=== PATIENT | female | born 1975 | race Caucasian/White ===

== ENCOUNTER → 2020-10-10 12:52 | Outpatient (BNVA) | payer MEDICAID, SELFPAY | PROVIDERS: Visit Provider Nurse Practitioner Family | DX: Z20.822 Contact with and (suspected) exposure to COVID-19 (principal) | CPT/HCPCS: 87635 ==

== ENCOUNTER 2020-10-13 19:42 | Emergency (ER) | payer MEDICAID, SELFPAY ==
[2020-10-13 20:04] VITALS: BP 129/89; PULSE 116; RESP 18; TEMP 37.2; O2SAT 93; BMI 41.1
[2020-10-13 20:09] VITALS: O2SAT 93
[2020-10-13] MEDS: ondansetron 2 mg/ML SDV 2 mL 4 MG IM (20:48)
--- NOTE | 2020-10-13 20:51 | W.ED.COVID ---
HPI - COVID General: Chief Complaint: COVID symptoms Stated Complaint: COVID+/SOB Time Seen by Provider: 10/13/20 20:16 Triage information: Has fever, cough or shortness of breath. Exposure to COVID + person last 14 days History of Present Illness: HPI Narrative: Patient complains being Covid positive, with symptoms since . Test was done on the shows positive for Covid. Patient said she is able to keep some fluids down but she has vomiting some now. Does complain about shortness of breath muscle aches. Patient did not have the vaccine. complaint: known COVID positive Prior covid testing: yes, results known Prior testing date: 10/10/20 COVID 19 common symptoms: positive fever(s), cough, non-productive cough, body aches, nausea, vomiting and diarrhea; negative headache(s), throat pain or nasal congestion COVID 19 other sytmptoms: negative chest pain Onset (ago): day(s) Severity: moderate Pertinent comorbid conditions: hypertension Treatment prior to arrival: acetaminophen COVID Results: SARS-CoV-2 RNA (RT-PCR) Detected (NOT DETECTED) A 10/10/20 12:52 10/10/20 Review of Systems Const: Reports: fever(s) and body aches Eyes: Denies: change in vision or blurry vision ENMT: Denies: throat pain or nasal congestion Card: Denies: chest pain or dyspnea on exertion Resp: Reports: non-productive cough GI: Reports: nausea, vomiting and diarrhea Musc: Denies: extremity pain Skin/Breast: Denies: rash Neuro: Denies: headache(s) Psych: Denies: anxiety or depression Riaz/Lymph: Denies: easy bruising PFSH ED PFSH: Medical History (Updated 10/13/20 @ 20:31 by DEV Jesus) Anxiety Chronic back pain GERD (gastroesophageal reflux disease) Hypertension Obesity Restless leg syndrome Tachyarrhythmia Surgical History (Updated 06/07/19 @ 07:29 by Juan Slade MD) History of dilation and curettage History of tubal ligation Family History (Updated 06/06/19 @ 13:30 by MAGALIS Smallwood) Denies family history of Anesthesia complication Bleeding disorder Social History Smoking and tobacco status: former smoker History of recent travel: No Physical Exam Const: COMMON NORMALS: no acute distress GENERAL APPEARANCE: cooperative Resp: COMMON NORMALS: normal respiratory effort and No retractions Psych: COMMON NORMALS: mental status grossly normal Course Vital Signs: Vital signs: Vital Signs Temperature 99.0 F 10/13/20 20:04 Pulse Rate 116 H 10/13/20 20:04 Respiratory Rate 18 10/13/20 20:04 Blood Pressure 129/89 10/13/20 20:04 Pulse Oximetry 93 10/13/20 20:09 MDM - COVID COVID Results: SARS-CoV-2 RNA (RT-PCR) Detected (NOT DETECTED) A 10/10/20 12:52 10/10/20 Monoclonal Antibody - ED Inclusion/Exclusion Criteria age >/= 12 years, weight >/= 40kg /88lbs, symptom onset less than 10 days ago and + direct Sars-Cov-2 test less than 7-10 days ago obesity (BMI >25 or 85%til for age) and cardiovascular disease or htn not requiring hospitalization, not requiring oxygen (if not chronically on oxygen) and no increase oxygen requirement (if chronically on oxygen) Patient education patient/family/caregiver received/reviewed fact sheet, Emergency Use Authorization/unapproved drug status discussed with patient/family/caregiver, alternatives to this treatment discussed with patient/family/caregiver, risks and benefits of medication reviewed with patient/family/caregiver, patient/family/caregiver given opportunity for questions, which were answered and patient consents to receiving Monoclonal Antibody Treatment Plan for treatment Meets criteria for Monoclonal Antibody infusion Date of symptom(s) onset: 10/05/20 Where are the positive COVID test results, if positive?: Resulted in [facility] Monoclonal antibody information given and Ordering Monoclonal Antibody infusion for another day Discharge Plan Discharge Patient Disposition: Home Clinical Impression: COVID-19 Condition: Stable Prescriptions: New Zofran 4 mg tablet 4 mg PO Q8H 3 Days Qty: 9 RF: 0 No Action metoprolol tartrate 50 mg tablet 50 mg PO DAILY RF: 0 cetirizine 10 mg capsule 10 mg PO DAILY RF: 0 montelukast 10 mg tablet 10 mg PO DAILY RF: 0 loratadine 10 mg capsule 10 mg PO DAILY PRNRF: 0 lisinopril 5 mg tablet 5 mg PO DAILY RF: 0 amitriptyline 25 mg tablet 25 mg PO DAILY RF: 0 paroxetine HCl 20 mg tablet 20 mg PO DAILY RF: 0 meloxicam 15 mg tablet 15 mg PO DAILY RF: 0 levothyroxine 25 mcg capsule 25 mcg PO DAILY RF: 0 Discharge Orders: Discharge ED (Routine); Ordered 10/13/20 Ordered By: Jalil Gan Other Ambulatory Orders: Request for MCA (Routine) Timeframe: 1 Day Facility: [facility] - Location: Outpatient [facility] Ordered By: Jalil Gan Referrals: Haydee Salas FNP [Primary Care Provider] - Discharge Diet: Usual diet Discharge Activity: Increase activity as tolerated Activity Restrictions/Additional Instructions: Take medication as directed on label. Follow-up tomorrow morning here at [facility] at the ER for antibody infusion as directed. Can take Tylenol and/or ibuprofen for discomfort. Coding Level of Care Code ED Assembler Cards [employer] Announcements for Slivio Morocho
[2020-10-13 21:45] VITALS: BP 143/89; PULSE 125; RESP 24; TEMP 38.3; O2SAT 95
[2020-10-13 22:44] VITALS: BP 128/89; PULSE 122; RESP 22; TEMP 39; O2SAT 93
[2020-10-13] MEDS: acetaminophen 500 mg Tablet 1000 MG PO (22:50)
[2020-10-13 23:27] VITALS: BP 158/86; PULSE 114; RESP 20; TEMP 37.5; O2SAT 92
[2020-10-13 23:53] VITALS: BP 148/85; PULSE 112; RESP 22; TEMP 37.6; O2SAT 92
== END 2020-10-13 23:54 | disposition home or self-care (01) ==
PROVIDERS: Emergency Provider Nurse Practitioner Family; PCP Nurse Practitioner Family
DX: U07.1 COVID-19 (principal); I10 Essential (primary) hypertension; Z87.891 Personal history of nicotine dependence
CPT/HCPCS: 96365; 96372; 99284; J2405

== ENCOUNTER 2020-10-19 11:35 | Outpatient (CLI) | payer MEDICAID, SELFPAY ==
--- NOTE | 2020-10-19 11:47 | CT_ITS ---
WS: [id number] CT CHEST ANGIOGRAPHY WITH REFORMATS HISTORY: ELEVATED D DIMER TECHNIQUE: Contiguous axial images are obtained through the chest during arterial injection of intrav enous contrast. Images are reconstructed to evaluate the pulmonary arteries. MIP imaging also reviewe d. All CT scans at [facility] use at least one of these dose optimization techniques: aut omated exposure control; mA and/or kV adjustment per patient size (includes targeted exams where dose is matched to clinical indication); or iterative reconstruction. CONTRAST: Omnipaque 350; 95 mL IV. DLP: 527.38 mGy.cm COMPARISON: None available. Adequate opacification of the pulmonary arteries centrally. No filling defects are identified. Normal size pulmonary artery. Normal thoracic aorta. Heart size is normal with no RIGHT heart strain. No pe ricardial or pleural effusions. Multi lobar consolidations and groundglass opacifications involving all lobes. Most typical for Covid 19. No pneumothorax. Mildly prominent perihilar lymph nodes measuring up to 1.2 cm diameter are prob ably reactive. No hiatal hernia. Mild hepatic steatosis. Visualized gallbladder is normal. No adrenal mass. Thoracic spondylitic change. CT/CT angio chest PE protcl [id number] IMPRESSION: 1. No pulmonary embolism. 2. Multi lobar pulmonary consolidations and groundglass opacifications. Consid er Covid 19 pneumonia. 3. Reactive lymphadenopathy.
[2020-10-19] MEDS: iohexol 350 mg/mL 100 mL Btl IV (12:34)
== END 2020-10-19 11:36 | disposition home or self-care (01) ==
PROVIDERS: PCP Nurse Practitioner Family; Visit Provider Nurse Practitioner Family
DX: R79.89 Other specified abnormal findings of blood chemistry (principal)
CPT/HCPCS: 71275

== ENCOUNTER → 2020-10-25 14:16 | Outpatient (BNVA) | payer MEDICAID, SELFPAY | PROVIDERS: PCP Nurse Practitioner Family; Referring Provider Nurse Practitioner Family; Visit Provider Podiatrist Foot & Ankle Surgery | DX: M79.672 Pain in left foot (principal) | CPT/HCPCS: 73630 ==

== ENCOUNTER 2020-10-25 16:33 | Outpatient (CLI) | payer MEDICAID, SELFPAY | END 2020-10-25 16:34 | disposition home or self-care (01) | LOC: SPT 16:33 | PROVIDERS: PCP Nurse Practitioner Family; Visit Provider Podiatrist Foot & Ankle Surgery | DX: Z46.89 Encounter for fitting and adjustment of other specified devices (principal); M72.2 Plantar fascial fibromatosis | CPT/HCPCS: 97760; L4397 ==

== ENCOUNTER → 2021-07-16 09:56 | Outpatient (BNVA) | payer MEDICAID, SELFPAY | PROVIDERS: PCP Nurse Practitioner Family; Visit Provider Podiatrist Foot & Ankle Surgery | DX: M19.071 Primary osteoarthritis, right ankle and foot (principal); M79.671 Pain in right foot | CPT/HCPCS: 73630; 99214 ==

== ENCOUNTER → 2021-08-29 13:54 | Outpatient (BNVA) | payer MEDICAID, SELFPAY | PROVIDERS: PCP Nurse Practitioner Family; Visit Provider Podiatrist Foot & Ankle Surgery | DX: M79.674 Pain in right toe(s) (principal); M19.071 Primary osteoarthritis, right ankle and foot | CPT/HCPCS: 99214 ==

== ENCOUNTER → 2021-11-19 14:21 | Outpatient (BNVA) | payer MEDICAID, SELFPAY | PROVIDERS: PCP Nurse Practitioner Family; Visit Provider Internal Medicine Pulmonary Disease | DX: R05.8 Other specified cough (principal); Z12.11 Encounter for screening for malignant neoplasm of colon; R06.02 Shortness of breath; R05.3 Chronic cough; U09.9 Post COVID-19 condition, unspecified; R09.82 Postnasal drip; Z87.891 Personal history of nicotine dependence | CPT/HCPCS: 36415; 71046; 82785; 85025; 99204 ==

== ENCOUNTER → 2023-02-10 14:38 | Outpatient (BNVA) | payer MEDICAID, SELFPAY | PROVIDERS: PCP Nurse Practitioner Family; Visit Provider Podiatrist Foot & Ankle Surgery | DX: G57.81 Other specified mononeuropathies of right lower limb | CPT/HCPCS: 99213 ==

== ENCOUNTER → 2023-11-10 08:00 | Outpatient (BNVA) | payer MEDICAID, SELFPAY | PROVIDERS: PCP Nurse Practitioner Family; Referring Provider Nurse Practitioner Family; Visit Provider Psychiatry & Neurology Neurology | DX: M51.36 Other intervertebral disc degeneration, lumbar region; M51.37 Other intervertebral disc degeneration, lumbosacral region; S16.1XXA Strain of muscle, fascia and tendon at neck level, initial encounter; S29.019A Strain of muscle and tendon of unspecified wall of thorax, initial encounter; M79.18 Myalgia, other site; X58.XXXA Exposure to other specified factors, initial encounter | CPT/HCPCS: 99203 ==

== ENCOUNTER → 2023-11-17 13:22 | Outpatient (BNVA) | payer MEDICAID, SELFPAY | PROVIDERS: PCP Nurse Practitioner Family; Visit Provider Orthopaedic Surgery | DX: M79.18 Myalgia, other site (principal); M48.062 Spinal stenosis, lumbar region with neurogenic claudication; M51.36 Other intervertebral disc degeneration, lumbar region; M51.37 Other intervertebral disc degeneration, lumbosacral region | CPT/HCPCS: 72110; 99204 ==

== ENCOUNTER 2024-04-30 18:52 | Emergency (ER) | payer MEDICAID, SELFPAY ==
[2024-04-30 19:03] VITALS: BP 156/87; PULSE 50; RESP 16; TEMP 36.8; O2SAT 97; BMI 34.3
--- NOTE | 2024-04-30 20:07 | W.ED.BACK ---
HPI - Back Pain/Injury General: Chief Complaint: Back Pain/Injury Stated Complaint: Lower back Disc Pain down into legs Time Seen by Provider: 04/30/24 19:19 History of Present Illness: This patient is a 49-year-old white female who presents to the emergency department with low back pain that radiates to the right buttock. Patient states she has had the pain for the past 2 days. She does have known degenerative disc disease and has seen Dr. Winter. Patient has been taking Tylenol and muscle relaxers without much relief. No prior surgery on her lumbar spine. She has not had any incontinence of urine or stool. Related Data Home Medications ?Medication ?Instructions ?Recorded ?Confirmed cetirizine 10 mg capsule 10 mg PO DAILY 06/06/19 11/17/23 montelukast 10 mg tablet 10 mg PO DAILY 06/06/19 11/17/23 levothyroxine 25 mcg capsule 25 mcg PO DAILY 10/10/20 11/17/23 hydrochlorothiazide 25 mg tablet 25 mg PO DAILY 08/29/21 11/17/23 losartan 50 mg tablet 50 mg PO DAILY 08/29/21 11/17/23 cholecalciferol (vitamin D3) 125 125 mcg PO DAILY 10/08/21 11/17/23 mcg (5,000 unit) capsule magnesium 30 mg tablet 30 mg PO DAILY 10/08/21 11/17/23 dulaglutide 1.5 mg/0.5 mL 1.5 mg SUBCUT 11/10/23 11/17/23 subcutaneous pen injector (Trulicity) lancets 33 gauge ([facility] #100 ea 11/10/23 11/17/23 Plus Lancet) Previous Rx's ?Medication ?Instructions ?Recorded Night splint #1 ea 10/25/20 metaxalone 800 mg tablet 800 mg PO TID #90 tabs 11/10/23 cyclobenzaprine 5 mg tablet 5 mg PO TID PRN muscle spasm 14 01/04/24 days #42 tabs hydrocodone 5 mg-acetaminophen 325 1 tab PO Q6H PRN pain #30 tabs 04/30/24 mg tablet methylprednisolone 4 mg tablets in See Rx Instructions PO .COMPLEX 04/30/24 a dose pack (Medrol (Luis Eduardo)) #21 ea Allergies Allergy/AdvReac Type Severity Reaction Status Date / Time Penicillins Allergy Intermediate ALGY-Rash Verified 11/17/23 13:29 Review of Systems General: Reports: 10 or more systems reviewed and unremarkable except in HPI and below Musc: Reports: back pain PFSH ED PFSH: Medical History Type 2 diabetes mellitus, without long-term current use of insulin Vitamin D deficiency, unspecified Hypothyroidism, unspecified DDD (degenerative disc disease), lumbosacral Supraventricular tachycardia Encounter to establish care Tachyarrhythmia Anxiety Hypertension Obesity GERD (gastroesophageal reflux disease) Surgical History History of endometrial ablation History of tonsillectomy History of dilation and curettage History of tubal ligation Family History Denies family history of Anesthesia complication Bleeding disorder Social History Smoking and tobacco/nicotine status: never used tobacco/nicotine Quit status (tobacco/nicotine): has quit using Year quit tobacco: 2001 Former quit date comment: 1ppd x 10 years Physical Exam Const: COMMON NORMALS: no acute distress, patient oriented x3 and no limitations GENERAL APPEARANCE: cooperative and comfortable HENMT: COMMON NORMALS: normocephalic, atraumatic, Normal nasal mucous membranes and turbinates present, moist oral mucous membranes and oropharynx normal HEAD & SCALP: normal to inspection, normocephalic and atraumatic FACE & SINUS: normal facial exam NOSE: Normal nasal mucous membranes and turbinates present Eye: COMMON NORMALS: Equal, round and reactive pupils present, EOMs intact bilaterally and conjunctivae normal GENERAL EYE: appearance normal, both eyes and all related structures CONJUNCTIVA: Yes conjunctivae normal PUPIL: Yes Equal, round and reactive pupils present Neck/C-Spine: COMMON NORMALS: supple and no JVD Chest: COMMONS NORMALS: normal inspection of the chest Resp: COMMON NORMALS: normal respiratory effort and clear to auscultation bilaterally AUSCULTATION: clear to auscultation bilaterally Cardio: COMMON NORMALS: no JVD, regular rate, regular rhythm, No gallops present (Cardio), No murmurs present (Cardio) and No rub (Cardio) RATE: regular rate RHYTHM: regular rhythm GI: COMMON NORMALS: Normal to inspection, nondistended, normoactive bowel sounds present, Soft to palpation and non-tender AUSCULTATION: Yes normoactive bowel sounds PALPATION: Yes Soft to palpation : COMMON NORMALS: Yes no CVA tenderness BLADDER/KIDNEY EXAM: Yes no CVA tenderness Back/Pelvis: COMMON NORMALS: no CVA tenderness LUMBAR SPINE/LOWER BACK: Yes pain with ROM and Yes lumbar spinal tenderness Extremity: COMMON NORMALS: normal to inspection Neuro: COMMON NORMALS: patient oriented x3 and CN's II-XII intact bilaterally Psych: COMMON NORMALS: mental status grossly normal, Normal thought process present and cooperative THOUGHT PROCESS: Normal thought process present Skin: COMMON NORMALS: no rashes or lesions noted, turgor normal and no jaundice GENERAL SKIN EXAM: no rashes or lesions noted and turgor normal Course Vital Signs: Vital signs: Vital Signs Temperature 98.2 F 04/30/24 19:03 Pulse Rate 50 L 04/30/24 19:03 Respiratory Rate 16 04/30/24 19:03 Blood Pressure 156/87 04/30/24 19:03 Pulse Oximetry 97 04/30/24 19:03 Oxygen Delivery Me thod Room Air 04/30/24 19:03 MDM - Back Pain/Injury Medical Decision Making Patient was given injection of morphine for pain in the emergency department. She was discharged in stable condition with prescriptions for hydrocodone and a Medrol Dosepak. Recommended she follow-up with her primary care provider and/or spine surgeon for ongoing management. No radiology studies performed this visit Discharge Plan Discharge Patient Disposition: Home Clinical Impression: Sciatica Qualifiers: Laterality: right Qualified Code(s): M54.31 - Sciatica, right side Condition: Stable Prescriptions: New hydrocodone-acetaminophen 5-325 mg tablet 1 tab PO Q6H PRN (Reason: pain) Qty: 30 0RF methylprednisolone [Medrol (Luis Eduardo)] 4 mg tablets,dose pack See Rx Instructions .ROUTE .COMPLEX Qty: 21 0RF Rx Instructions: orally per package directions No Action cetirizine 10 mg capsule 10 mg PO DAILY montelukast 10 mg tablet 10 mg PO DAILY levothyroxine 25 mcg capsule 25 mcg PO DAILY (DME) Night splint See Rx Instructions .ROUTE .MEDSUPPLY Qty: 1 0RF Rx Instructions: As directed losartan 50 mg tablet 50 mg PO DAILY hydrochlorothiazide 25 mg tablet 25 mg PO DAILY cholecalciferol (vitamin D3) 125 mcg (5,000 unit) capsule 125 mcg PO DAILY magnesium 30 mg tablet 30 mg PO DAILY (DME) lancets [OneTouch Delica Plus Lancet] 33 gauge misc See Rx Instructions .ROUTE .MEDSUPPLY Qty: 100 Rx Instructions: As directed Trulicity 1.5 mg/0.5 mL pen injector 1.5 mg SUBCUT metaxalone 800 mg tablet 800 mg PO TID Qty: 90 3RF cyclobenzaprine 5 mg tablet 5 mg PO TID PRN (Reason: muscle spasm) 14 Days Qty: 42 0RF Discharge Orders: Discharge ED (Routine); Ordered 04/30/24 Ordered By: Buddy Santos Referrals: Haydee Salas FNP [Primary Care Provider] - Patient Instructions: Opioid Safety, Pain Management, Sciatica Activity Restrictions/Additional Instructions: Follow-up with your primary care provider and/or back specialist for ongoing management. Print Language: Namibian Coding Level of Care Code ED Battery Repairer for Silvio Morocho
[2024-04-30] MEDS: ondansetron hcl ODT 4 mg Tab PO (20:27)
[2024-04-30] MEDS: morphine 4 mg/mL SDV 1 mL 8 MG IM (20:27)
[2024-04-30 20:43] VITALS: BP 152/82; PULSE 71; RESP 16; O2SAT 98
== END 2024-04-30 20:42 | disposition home or self-care (01) ==
PROVIDERS: Emergency Provider Emergency Medicine; PCP Nurse Practitioner Family
DX: M54.31 Sciatica, right side (principal); Z79.85 Long-term (current) use of injectable non-insulin antidiabetic drugs; Z87.891 Personal history of nicotine dependence; E11.9 Type 2 diabetes mellitus without complications; I10 Essential (primary) hypertension
CPT/HCPCS: 96372; 99284; J2270; Q0162

== ENCOUNTER 2024-06-17 08:48 | Outpatient (CLI) | payer MEDICAID, SELFPAY ==
--- NOTE | 2024-06-17 08:54 | MM_ITS ---
WS: [id number] BILATERAL SCREENING DIGITAL TOMOSYNTHESIS MAMMOGRAM WITH CAD HISTORY: SCREENING COMPARISON: 05/11/2017, 04/22/2017, 07/26/2013 Bilateral CC and MLO views with tomosynthesis and synthetic mammography submitted. Computer aided detection analyzed. Breast composition: There are scattered areas of fibroglandular density. No suspicious masses, microcalcifications or architectural distortion. Stable calcifications in each breast. Benign lymph node LEFT axillary tail. MM/MM scr BI tomosynthesis [id number] IMPRESSION: BI-RADS: 2 - Benign. FOLLOW UP: 1 Year Follow-up
== END 2024-06-17 08:49 | disposition home or self-care (01) ==
PROVIDERS: PCP Nurse Practitioner Family; Visit Provider Nurse Practitioner Family
DX: Z12.31 Encounter for screening mammogram for malignant neoplasm of breast (principal); R92.323 Mammographic fibroglandular density, bilateral breasts; R92.1 Mammographic calcification found on diagnostic imaging of breast; R59.0 Localized enlarged lymph nodes
CPT/HCPCS: 77063; 77067

== ENCOUNTER → 2024-10-14 09:51 | Outpatient (BNVA) | payer OTHER, MEDICAID, SELFPAY | PROVIDERS: PCP Nurse Practitioner Family; Visit Provider Nurse Practitioner | DX: M16.12 Unilateral primary osteoarthritis, left hip (principal); M70.62 Trochanteric bursitis, left hip; M54.16 Radiculopathy, lumbar region; M48.062 Spinal stenosis, lumbar region with neurogenic claudication | CPT/HCPCS: 73502 ==

== ENCOUNTER → 2024-11-14 10:20 | Outpatient (BNVA) | payer OTHER, MEDICAID, SELFPAY | PROVIDERS: PCP Nurse Practitioner; Visit Provider Nurse Practitioner | DX: M19.011 Primary osteoarthritis, right shoulder (principal); M67.911 Unspecified disorder of synovium and tendon, right shoulder | CPT/HCPCS: 73030 ==

== ENCOUNTER 2025-01-25 13:02 | Outpatient (CLI) | payer OTHER, MEDICAID, SELFPAY ==
--- NOTE | 2025-01-25 13:00 | MR_ITS ---
WS: [id number] MRI LUMBAR SPINE NONCONTRAST HISTORY: Chronic low back pain into RIGHT leg. COMPARISON: None available. TECHNIQUE: Sagittal and axial multisequence imaging is submitted. Normal lumbar alignment with no compression fractures or marrow edema. Disc spaces and vertebral body heights are well-preserved. Conus terminates normally at L1-2 disc level. L1-L2: Normal. L2-L3: Normal. L3-L4: Mild disc bulging and facet arthropathy. Mild foraminal stenosis. L4-L5: Mild annular disc bulging with facet arthritis. Mild LEFT foraminal stenosis. L5-S1: Central disc protrusion extends greatest to the LEFT. There is mild contact on the LEFT S1 nerve root. Mild osteophytic ridging. Mild bilateral foraminal stenosis due to disc osteophyte disease. There is contact on the exiting L5 nerve roots, greater on the RIGHT than the LEFT. LEFT renal cyst 1.4 cm. Numerous stones are present in the gallbladder. MR/MR lumbar spine wo con* [id number] IMPRESSION: 1. No high-grade central stenosis. 2. Mild bilateral foraminal stenosis at L5-S1 with mild disc osteophyte contac t on the exiting L5 nerve roots. 3. Central disc protrusion at L5-S1 with contact on the LEFT S1 nerve root. 4. Mild LEFT foraminal stenosis at L4-5 and bilateral at L3-4.
== END 2025-01-25 13:03 | disposition home or self-care (01) ==
LOC: RAD 13:03
PROVIDERS: PCP Nurse Practitioner; Visit Provider Nurse Practitioner
DX: M51.370 Other intervertebral disc degeneration, lumbosacral region with discogenic back pain only (principal); M48.062 Spinal stenosis, lumbar region with neurogenic claudication; M51.362 Other intervertebral disc degeneration, lumbar region with discogenic back pain and lower extremity pain; M47.816 Spondylosis without myelopathy or radiculopathy, lumbar region; M48.061 Spinal stenosis, lumbar region without neurogenic claudication; M51.17 Intervertebral disc disorders with radiculopathy, lumbosacral region
CPT/HCPCS: 72148